=== PATIENT | female | born 1955 | race Caucasian/White ===

== ENCOUNTER 2020-11-04 01:03 | Day surgery (SDC) | payer MEDICARE, OTHER ==
[~2020-11-04 01:03] MED LIST: ESTR2 PO; FARXIGA5 MG PO; GENUVIA; IBUP800 PO; INS70/30I; INS70/30PN SC; OXYACE5T PO; SITA100T2 PO; SITA25T2 PO
== END 2020-11-04 22:58 | disposition home or self-care (01) ==
LOC: WOUND 01:03
DX: E11.621 Type 2 diabetes mellitus with foot ulcer (principal); L97.512 Non-pressure chronic ulcer of other part of right foot with fat layer exposed; E11.59 Type 2 diabetes mellitus with other circulatory complications; E11.40 Type 2 diabetes mellitus with diabetic neuropathy, unspecified; Z87.891 Personal history of nicotine dependence
CPT/HCPCS: A9270

== ENCOUNTER 2020-11-14 00:47 | Day surgery (SDC) | payer MEDICARE | END 2020-11-14 23:12 | disposition home or self-care (01) | LOC: WOUND 00:47 | DX: E11.621 Type 2 diabetes mellitus with foot ulcer (principal); L97.512 Non-pressure chronic ulcer of other part of right foot with fat layer exposed; E08.65 Diabetes mellitus due to underlying condition with hyperglycemia; E11.40 Type 2 diabetes mellitus with diabetic neuropathy, unspecified; Z79.4 Long term (current) use of insulin | CPT/HCPCS: A9270 ==

== ENCOUNTER 2020-11-20 00:26 | Day surgery (SDC) | payer MEDICARE | END 2020-11-20 23:26 | disposition home or self-care (01) | LOC: WOUND 00:26 | DX: E11.621 Type 2 diabetes mellitus with foot ulcer (principal); L97.512 Non-pressure chronic ulcer of other part of right foot with fat layer exposed; E11.40 Type 2 diabetes mellitus with diabetic neuropathy, unspecified | CPT/HCPCS: A9270 ==

== ENCOUNTER 2020-12-05 02:03 | Day surgery (SDC) | payer MEDICARE, OTHER | END 2020-12-05 23:12 | disposition home or self-care (01) | LOC: WOUND 02:03 | DX: E11.621 Type 2 diabetes mellitus with foot ulcer (principal); L97.512 Non-pressure chronic ulcer of other part of right foot with fat layer exposed; E11.40 Type 2 diabetes mellitus with diabetic neuropathy, unspecified | CPT/HCPCS: A9270 ==

== ENCOUNTER 2020-12-12 00:43 | Day surgery (SDC) | payer MEDICARE, OTHER | END 2020-12-12 23:08 | disposition home or self-care (01) | LOC: WOUND 00:43 | DX: E11.621 Type 2 diabetes mellitus with foot ulcer (principal); L97.512 Non-pressure chronic ulcer of other part of right foot with fat layer exposed; E11.40 Type 2 diabetes mellitus with diabetic neuropathy, unspecified | CPT/HCPCS: A9270; G0463 ==

== ENCOUNTER 2020-12-26 00:52 | Day surgery (SDC) | payer MEDICARE, OTHER | END 2020-12-26 23:13 | disposition home or self-care (01) | LOC: WOUND 00:52 | DX: E11.621 Type 2 diabetes mellitus with foot ulcer (principal); L97.512 Non-pressure chronic ulcer of other part of right foot with fat layer exposed; E11.65 Type 2 diabetes mellitus with hyperglycemia; E11.40 Type 2 diabetes mellitus with diabetic neuropathy, unspecified | CPT/HCPCS: A9270; G0463 ==

== ENCOUNTER → 2025-01-04 | Outpatient (CLI) | payer MEDICARE, OTHER | LOC: LAB SHORT 08:32 → LAB 08:32 | DX: N39.0 Urinary tract infection, site not specified (principal) | CPT/HCPCS: 87077; 87086; 87186 ==